=== PATIENT | female | born 1945 | race Caucasian/White ===

== ENCOUNTER 2018-02-23 13:08 | Inpatient (IN) | payer MEDICARE, OTHER ==
[~2018-02-23] VITALS: Ht 165.1 cm; Wt 59.9 kg
[2018-02-23 13:37] VITALS: BP 101/44
[2018-02-23 13:44] LABS: ABSOLUTE LYMPHOCYTES 0.6 thou/uL (0.8-5.3); ABSOLUTE MONOCYTES 0.9 thou/uL (0.0-1.2); ABSOLUTE NEUTROPHILS 4.2 thou/uL (1.6-8.1); BASOPHILS 0.1 %; EOSINOPHILS 0.3 %; HEMATOCRIT 25.7 % (37.0-47.0); HEMOGLOBIN 8.7 gm/dL (12.0-15.0); LYMPHOCYTES 10.1 %; MCH 31.5 pg (26.0-34.0); MCHC 33.7 g/dL (28.0-37.0); MCV 93.5 fL (80.0-100.0); MPV 8.6 fl. (7.2-11.1); NUCLEATED RBCS 0 /100WBC; PLATELET COUNT* 202 thou/uL (150-400); POLYS 73.5 %; RBC 2.75 mil/uL (4.20-5.00); RDW-CV 16.6 % (10.5-14.5); WBC 5.7 thou/uL (4.0-11.0)
[2018-02-23] MEDS ORDERED: NEURONTIN 300300 M1 PO (13:54)
[2018-02-23] MEDS ORDERED: ZOCOR20 MG PO (13:55)
[2018-02-23] MEDS ORDERED: LOPERAMIDE 2 MG2 M1 PO (13:55)
[2018-02-23 13:56] LABS: APTT 35.9 Seconds (25.0-31.3); PROTIME 10.6 Seconds (9.20-11.50)
[2018-02-23] MEDS ORDERED: D3 + K2 DOTS 11 EACH PO (13:56)
[2018-02-23] MEDS ORDERED: TOPROL XL100 MG PO (13:56)
[2018-02-23] MEDS ORDERED: MELATONIN5 M1 PO (13:56)
[2018-02-23] MEDS ORDERED: TESSALON PERLE100 MG PO (13:57)
[2018-02-23] MEDS ORDERED: UNICOMPLEX M TA1 TA1 PO (13:57)
[2018-02-23] MEDS ORDERED: OMEPRAZOLE40 MG PO (13:57)
[2018-02-23] MEDS ORDERED: ZOFRAN ODT4 MG DISSOLVE (13:58)
[2018-02-23 13:59] LABS: ANION GAP 6 mmol/L (7-16); BUN 36 mg/dL (7-18); CALCIUM 8.3 mg/dL (8.5-10.1); CHLORIDE 98 mmol/L (98-107); CO2 30 mmol/L (21-32); CREATININE 0.9 mg/dL (0.6-1.3); GLUCOSE 169 mg/dL (70-99); POTASSIUM 4.5 mmol/L (3.5-5.1); SODIUM 134 mmol/L (136-145)
[2018-02-23] MEDS ORDERED: DURAGESIC1 EAC4 TP (13:59)
[2018-02-23] MEDS ORDERED: LANTUS100 UNIT/M SUBQ (13:59)
[2018-02-23] MEDS ORDERED: ULTRAM 50MG TAB50 MG PO (14:03)
[2018-02-23] MEDS ORDERED: ENOXAPARIN40 MG/0.1 SUBQ (14:05)
[2018-02-23 14:06] LABS: ALBUMIN 1.9 g/dL (3.4-5.0); ALKALINE PHOSPHATASE 124 U/L (46-116); CHOLESTEROL 98 mg/dL (<200); HDL CHOLESTEROL 42 mg/dL (>40); LDL CHOLESTEROL 49 mg/dL (<100); MAGNESIUM 1.9 mg/dL (1.8-2.4); SGOT 18 U/L (15-37); SGPT 25 U/L (30-65); TC:HDL 2.3 Ratio (Not establshd); TOTAL BILIRUBIN 0.6 mg/dL (<0.1-1.0); TOTAL PROTEIN 6.5 g/dL (6.4-8.2); TRIGLYCERIDE 37 mg/dL (<150); TROPONIN-I LEVEL <0.06 ng/mL (<0.06); VLDL 7 mg/dL (<40)
[2018-02-23] MEDS ORDERED: OXYCODONE HCL 55 MG PO (14:06)
[2018-02-23 14:07] LABS: SERUM ASSESSMENT Clear
[2018-02-23] MEDS ORDERED: TYLENOL325 MG PO (14:07)
[2018-02-23] MEDS ORDERED: MARINOL5 MG PO (14:07)
[2018-02-23] MEDS ORDERED: MILK OF MA2400 MG/10 PO (14:07)
[2018-02-23 17:00] VITALS: BP 99/47
[2018-02-23 17:40] VITALS: BP 111/92
[2018-02-23 20:10] VITALS: BP 110/40
[2018-02-24] VITALS (7 sets, daily range): BP systolic 88–110; BP diastolic 38–69
[2018-02-24] MEDS ORDERED: NEURONTIN 300300 M1 PO (13:40)
[2018-02-24] MEDS ORDERED: BENZONATATE200 MG PO (13:41)
[2018-02-24] MEDS ORDERED: VITAMIN D1000 UNI1 PO (13:41)
--- NOTE | 2018-02-24 13:43 | EKG ---
[place] [address] ELECTROCARDIOGRAM REPORT Name: ANEESH CHERRY Room: [address] IN [facility]#: [id number] Admission: 02/23/18 Attend Phys: Preet Sarmiento MD Discharge: Date of : 41 Report #: [id number] THIS REPORT FOR: //name// [facility] ED Test Date: 2018-02-23 Test Time: 13:15:48 Pat Name: ANEESH CHERRY Department: Room: [facility] Gender: F Dramatic Arts Historian: Sacha RODRIGUEZ : 1945 Requested By: Naldo Lee Order Number: [id number] MD: Herberth Marin Measurements Intervals [place] Rate: 85 P: 55 MD: 116 QRS: 28 QRSD: 87 T: 36 QT: 370 QTc: 440 Interpretive Statements Sinus rhythm Borderline short MD interval ST elevation suggests acute pericarditis No previous ECG available for comparison Electronically Signed On 02-24-2018 13:43:13 CONTINUOUS DRYOUT OPERATOR HELPER by Herberth Marin [email or web address] <ELECTRONICALLY SIGNED> By: Herberth Marin MD, [facility] 02/24/18 1343 1315 1315 Herberth Marin MD, FAC /EPI
--- NOTE | 2018-02-24 13:51 | EKG ---
[place] [address] ELECTROCARDIOGRAM REPORT Name: ANEESH CHERRY Room: [address] ADM IN .R.#: [id number] Admission: 02/23/18 Attend Phys: Preet Sarmiento MD Discharge: Date of : 41 Report #: [id number] THIS REPORT FOR: //name// [facility] Test Date: 2018-02-24 Test Time: 02:25:34 Pat Name: ANEESH CHERRY Department: Room: [address] Gender: F Shallot Packer: UNKNOWN : 1945 Requested By: Preet Sarmiento Order Number: [id number] Skye MD: Herberth Marin Measurements Intervals [place] Rate: 74 P: 59 WI: 121 QRS: 28 QRSD: 92 T: 30 QT: 413 QTc: 459 Interpretive Statements Sinus rhythm Borderline ST elevation, lateral leads Electronically Signed On 02-24-2018 13:51:07 BEAUTICIAN APPRENTICE by Herberth Marin [email or web address] <ELECTRONICALLY SIGNED> By: Herberth Marin MD, [facility] 02/24/18 1351 0225 0225 Herberth Marin MD, FACC /EPI
--- NOTE | 2018-02-24 13:57 | EKG ---
[place] [address] ELECTROCARDIOGRAM REPORT Name: ANEESH CHERRY Room: [address] ADM IN M.R.#: [id number] Admission: 02/23/18 Attend Phys: Preet Sarmiento MD Discharge: Date of : 41 Report #: [id number] THIS REPORT FOR: //name// [facility] Test Date: 2018-02-24 Test Time: 08:20:29 Pat Name: ANEESH CHERRY Department: Room: [address] Gender: F Die Cutter Operator: : 1945 Requested By: Preet Sarmiento Order Number: [id number] Skye MD: Herberth Marin Measurements Intervals [place] Rate: 73 P: 45 [place]: 112 QRS: 32 QRSD: 81 T: 36 QT: 407 QTc: 449 Interpretive Statements Sinus rhythm Borderline short [place] interval ST elevation suggests acute pericarditis Electronically Signed On 02-24-2018 13:57:29 COMPOSING MACHINE OPERATOR/TENDER by Herberth Marin [email or web address] <ELECTRONICALLY SIGNED> By: Herberth Marin MD, [facility] 02/24/18 1357 0820 08 Herberth Marin MD, FACC /EPI
--- NOTE | 2018-02-24 14:04 | EKG ---
[place] [address] ELECTROCARDIOGRAM REPORT Name: ANEESH CHERRY Room: [address] ADM IN .R.#: [id number] Admission: 02/23/18 Attend Phys: Preet Sarmiento MD Discharge: Date of : 41 Report #: [id number] THIS REPORT FOR: //name// [facility] Test Date: 2018-02-24 Test Time: 10:26:15 Pat Name: ANEESH CHERRY Department: Room: [address] Gender: F Head Baker: : 1945 Requested By: Marry Ortiz Order Number: [id number] Skye MD: Herberth Marin Measurements Intervals [place] Rate: 129 P: SD: QRS: 25 QRSD: 90 T: 27 QT: 313 QTc: 459 Interpretive Statements Atrial fibrillation Electronically Signed On 02-24-2018 14:03:58 REHABILITATION NURSE by Herberth Marin [email or web address] <ELECTRONICALLY SIGNED> By: Herberth Marin MD, [facility] 02/24/18 1403 1026 1026 Herberth Marin MD, FACC /EPI
[2018-02-25] VITALS: BP 109/59; BP 92/39
[2018-02-25 04:00] VITALS: BP 95/43
[2018-02-25 05:29] LABS: HEMATOCRIT 21.3 % (37.0-47.0); HEMOGLOBIN 7.3 gm/dL (12.0-15.0); MCH 32.2 pg (26.0-34.0); MCHC 34.4 g/dL (28.0-37.0); MCV 93.5 fL (80.0-100.0); RBC 2.27 mil/uL (4.20-5.00); RDW-CV 16.2 % (10.5-14.5)
[2018-02-25 06:24] LABS: ALBUMIN 1.4 g/dL (3.4-5.0); CREATININE 0.8 mg/dL (0.6-1.3); MAGNESIUM 2.1 mg/dL (1.8-2.4); POTASSIUM 4.5 mmol/L (3.5-5.1); TOTAL BILIRUBIN 0.4 mg/dL (<0.1-1.0); TOTAL PROTEIN 5.3 g/dL (6.4-8.2)
[2018-02-25 08:00] VITALS: BP 83/50
--- NOTE | 2018-02-25 13:29 | 2DMMODE ---
[place] [address] 2 D/M-MODE ECHOCARDIOGRAM Name: ANEESH CHERRY Room: [address] IN [facility]#: [id number] Admission: 02/23/18 Attend Phys: Preet Sarmiento, Discharge: Date of : 41 Date of Service: 02/25/18 1329 Report #: [id number] THIS REPORT FOR: //name// APPROVED REPORT Study performed: 02/25/2018 10:34:20 EXAM: Comprehensive 2D, Doppler, and color-flow Echocardiogram Patient Location: In-Patient Room #: [facility] Status: routine BSA: 2.04 HR: 114 bpm BP: 83/50 mmHg Rhythm: Atrial Fibrillation Other Information Study Quality: Good Indications Atrial Fibrillation Chest Pain 2D Dimensions IVSd: 10.62 (7-11mm) LVOT Diam: 19.26 (18-24mm) LVDd: 42.04 mm PWd: 9.50 (7-11mm) Ascending Ao: 30.84 (22-36mm) LVDs: 23.68 (25-40mm) Aortic Root: 26.69 mm Volumes Left Atrial Volume (Systole) LA ESV Index: 28.80 mL/m2 Aortic Valve AoV Peak Yinka.: 1.58 m/s AO Peak Gr.: 9.98 mmHg LVOT Max P.98 mmHg AO Mean Gr.: 5.36 mmHg LVOT Mean P.14 mmHg LVOT Max V: 1.00 m/s AO V2 VTI: 25.00 cm LVOT Mean V: 0.69 m/s JOSE RAUL (VTI): 2.19 cm2 LVOT V1 VTI: 18.80 cm Mitral Valve MV Decel. Time: 140.89 ms MV E Max Yinka.: 0.91 m/[place] [address] 2 D/M-MODE ECHOCARDIOGRAM Name: ANEESH CHERRY Room: [address] IN [facility]#: [id number] Admission: 02/23/18 Attend Phys: Preet Sarmiento, Discharge: Date of : 41 Date of Service: 02/25/18 1329 Report #: [id number] MV PHT: 40.86 ms MVA (PHT): 5.38 cm2 TDI E/Lateral E': 6.07 E/Medial E': 8.27 Medial E' Yinka.: 0.11 m/s Lateral E' Yinka.: 0.15 m/s Pulmonary Valve PV Peak Yinka.: 0.95 m/s PV Peak Gr.: 3.59 mmHg Tricuspid Valve RAP Estimate: 5.00 mmHg TR Peak Gr.: 22.33 mmHg RVSP: 27.00 mmHg PA Pressure: 27.00 mmHg Left Ventricle The left ventricle is normal size. There is normal LV segmental wall motion. There is normal left ventricular wall thickness. Left ventricular systolic function is normal. LVEF is 65-70%. This study is not technically sufficient to allow evaluation of the LV diastolic function due to atrial fibrillation. Right Ventricle The right ventricle is normal size. The right ventricular systolic function is normal. Atria Left atrium is mildly dilated. Right atrium is mildly dilated. Aortic Valve Mild aortic valve sclerosis. No aortic regurgitation is present. There is no aortic valvular stenosis. Mitral Valve The mitral valve is normal in structure. Trace mitral regurgitation. No evidence of mitral valve stenosis. Tricuspid Valve The tricuspid valve is normal in structure. Mild tricuspid regurgitation. No pulmonary hypertension. Pulmonic Valve The pulmonary valve is normal in structure. There is no pulmonic [place] [address] 2 D/M-MODE ECHOCARDIOGRAM Name: ANEESH CHERRY Room: [address] IN [facility]#: [id number] Admission: 02/23/18 Attend Phys: Preet Sarmiento, Discharge: Date of : 41 Date of Service: 02/25/18 1329 Report #: [id number] Great Vessels The aortic root is normal in size. IVC is normal in size and collapses >50% with inspiration. Pericardium There is no pericardial effusion. <Conclusion> The left ventricle is normal size. There is normal left ventricular wall thickness. Left ventricular systolic function is normal. LVEF is 65-70%. Left atrium is mildly dilated. Right atrium is mildly dilated. Trace mitral regurgitation. Mild tricuspid regurgitation. No pulmonary hypertension. IVC is normal in size and collapses >50% with inspiration. <ELECTRONICALLY SIGNED> By: Remi De Dios MD, FACC 02/25/18 1329 28 28 Remi De Dios MD, FACC /INF
--- NOTE | 2018-02-25 13:45 | EKG ---
[place] [address] ELECTROCARDIOGRAM REPORT Name: ANEESH CHERRY Room: [address] ADM IN M.R.#: [id number] Admission: 02/23/18 Attend Phys: Preet Sarmiento MD Discharge: Date of : 41 Report #: [id number] THIS REPORT FOR: //name// [facility] Test Date: 2018-02-25 Test Time: 08:16:28 Pat Name: ANEESH CHERRY Department: Room: [address] Gender: F Mold Designer: : 1945 Requested By: Herberth Marin Order Number: [id number] Skye MD: Remi De Dios Measurements Intervals [place] Rate: 93 P: AR: QRS: 26 QRSD: 85 T: 17 QT: 356 QTc: 443 Interpretive Statements Atrial fibrillation Compared to ECG 02/24/2018 10:26:15 No significant changes Electronically Signed On 02-25-2018 13:45:49 HIV NURSE by Remi De Dios [email or web address] <ELECTRONICALLY SIGNED> By: Remi De Dios MD, [facility] 02/25/18 1345 08 5 Remi De Dios MD, FACC /EPI
--- NOTE | 2018-02-25 13:54 | CON ---
[facility] [address] [place] [address] CONSULTATION Name: ANEESH CHERRY Room: [address] IN M.R.#: [id number] Admission: 02/23/18 Attend Phys: Preet Sarmiento MD Discharge: Date of : 41 Report #: [id number] THIS REPORT FOR: //name// CC: Morteza Sarmiento DATE OF SERVICE: 02/24/2018 TYPE OF REPORT: Cardiology consultation. PRIMARY CARE PHYSICIAN: Morteza Quinteros M.D. HISTORY OF PRESENT ILLNESS: The patient is a 72-year-old white female who I was asked to see in the hospital today after she had an episode of chest pain. The patient has an extensive past medical history. Unfortunately, none of her old records are here. The patient was diagnosed with breast cancer approximately a year ago. This was diagnosed by a biopsy. Apparently had spread to local lymph nodes as well as the eye, bone and lungs. She was treated with chemotherapy and radiation therapy. Apparently, she fell a couple of months ago and was found to have evidence of rib fracture. Recently, she had been having hip pain. Ten days ago, she underwent hip surgery at [facility]. She was hospitalized for 3 days. A week ago, she was transferred to rehabilitation. Yesterday, she was at rehab when she complained of some chest tightness. She was brought here to [place] by ambulance. She notes the tightness lasted all night long. There is no radiation of the pain. She denied associated shortness of breath, diaphoresis or nausea. She was admitted last night here to [place]. Today, she went into atrial fibrillation with rapid ventricular response rate. I was asked to see her for further evaluation and treatment. She denied any recent bleeding or cough. She denied any trauma to her chest. She notes some exertional dyspnea but denies any palpitations or syncope. She denied any leg pain. PAST MEDICAL HISTORY: Otherwise, she has had previous hemicolectomy for diverticular disease. She has a history of hypertension and diabetes. MEDICATIONS: On admission included Neurontin, Zocor, Imodium, metoprolol, omeprazole and fentanyl patch. She is on insulin, tramadol and dronabinol. ALLERGIES: She has intolerance to MORPHINE and SULFA. FAMILY HISTORY: Her mother had heart disease. SOCIAL HISTORY: She is . She and her live in [place], [place]. She ambulates with a cane. She also has a stair lift. Quit smoking years ago. [place] [address] CONSULTATION Name: ANEESH CHERRY Room: [address] IN M.R.#: [id number] Admission: 02/23/18 Attend Phys: Preet Sarmiento MD Discharge: Date of : 41 Report #: [id number] REVIEW OF SYSTEMS: No history of stroke. No history of asthma, peptic ulcer disease, kidney disease, psychiatric illness or chronic skin condition. PHYSICAL EXAMINATION: VITAL SIGNS: Revealed a blood pressure 100/70, pulse 70. She is afebrile. HEENT: She is anicteric. Conjunctivae pink. Mucous membranes moist. NECK: Veins do not appear distended. Neck is supple. CHEST: Clear to auscultation. CARDIOVASCULAR: Irregular tachycardia. No significant murmur. ABDOMEN: Soft. EXTREMITIES: Had no pitting edema. Dorsalis pedis pulse cannot be palpated. SKIN: Cool and dry. NEUROLOGICAL: Nonfocal. RADIOLOGICAL DATA: ECG on admission showed sinus rhythm with early repolarization. Currently, she appears to be in atrial fibrillation with rapid ventricular response rate. Her x-rays, the patient had portable chest x-ray on admission that showed normal heart size and clear lung pandya. There is a CT scan of the chest that showed no evidence of pulmonary embolus, evidence of metastatic disease with a mass in the lateral aspect of the left breast. LABORATORY DATA: Her lab work, sodium 139, BUN 27 and creatinine 0.8. Albumin is 1.5. Troponin is 0.06. Cholesterol 98 and LDL 49. White blood cell count 3.7 and hemoglobin 7.5. IMPRESSION AND RECOMMENDATIONS: 1. Atrial fibrillation. The patient is on a beta uvaldo. Recommend digoxin to slow the rate. The patient does not appear to be very good candidate for anticoagulation because of anemia. At this time, I recommend switching from metoprolol to sotalol. Recommend echocardiogram. 2. History of metastatic breast cancer. 3. Recent hip surgery. 4. Anemia. No history of bleeding. 5. Hypertension. The patient has been on beta uvaldo. 6. Diabetes. 7. Recent hip surgery. <ELECTRONICALLY SIGNED> By: Herberth Marin MD, FACC 02/25/18 1354 1042 [id number] enrique Marin MD, FAC /nt
[2018-02-25 16:24] VITALS: BP 92/27
[2018-02-25 16:58] VITALS: BP 119/52
[2018-02-25 20:00] VITALS: BP 124/79
[2018-02-26] VITALS: BP 108/44
[2018-02-26 04:00] VITALS: BP 104/42
[2018-02-26 05:00] LABS: HEMATOCRIT 21.2 % (37.0-47.0); HEMOGLOBIN 7.1 gm/dL (12.0-15.0); MCH 31.4 pg (26.0-34.0); MCHC 33.4 g/dL (28.0-37.0); MPV 8.9 fl. (7.2-11.1); RBC 2.25 mil/uL (4.20-5.00); RDW-CV 16.2 % (10.5-14.5); WBC 4.4 thou/uL (4.0-11.0)
[2018-02-26 05:24] LABS: CREATININE 0.8 mg/dL (0.6-1.3); MAGNESIUM 2.1 mg/dL (1.8-2.4); POTASSIUM 4.5 mmol/L (3.5-5.1)
[2018-02-26 07:30] VITALS: BP 110/42
[2018-02-26] MEDS ORDERED: PROPAFENONE 15150 MG PO (12:03)
[2018-02-26 12:19] VITALS: BP 110/42
--- NOTE | 2018-02-27 11:17 | EKG ---
[place] [address] ELECTROCARDIOGRAM REPORT Name: ANEESH CHERRY Room: [address] DIS IN .R.#: [id number] Admission: 02/23/18 Attend Phys: Preet Sarmiento MD Discharge: 02/26/18 Date of : 41 Report #: [id number] THIS REPORT FOR: //name// [facility] Test Date: 2018-02-25 Test Time: 17:08:00 Pat Name: ANEESH CHERRY Department: Room: [address] Gender: F Handyman: [id number] : 1945 Requested By: Herberth Marin Order Number: [id number] Skye MD: Herberth Marin Measurements Intervals [place] Rate: 77 P: 78 NM: 96 QRS: 90 QRSD: 90 T: 4 QT: 375 QTc: 425 Interpretive Statements Sinus rhythm Short NM interval Borderline right axis deviation Abnormal R-wave progression, early transition Compared to ECG 02/25/2018 08:16:28 Atrial fibrillation no longer present Electronically Signed On 02-27-2018 11:17:19 HAZARDOUS SUBSTANCES ENGINEER by Herberth Marin [email or web address] <ELECTRONICALLY SIGNED> By: Herberth Marin MD, FACC 02/27/18 1117 1708 1708 Herberth Marin MD, [facility] /EPI
== END 2018-02-26 14:38 | DRG 597 ==
LOC: M.ERS 13:08 → EDBD 13:08 → M.2W 14:47 → M.TBA-ER 14:47 → M.2W 17:15
PROVIDERS: Family Medicine; Internal Medicine
DX: C50.919 Malignant neoplasm of unspecified site of unspecified female breast (principal); E43 Unspecified severe protein-calorie malnutrition; C78.00 Secondary malignant neoplasm of unspecified lung; C78.89 Secondary malignant neoplasm of other digestive organs; C79.51 Secondary malignant neoplasm of bone; C22.0 Liver cell carcinoma; R07.89 Other chest pain; I48.91 Unspecified atrial fibrillation; D63.0 Anemia in neoplastic disease; E11.40 Type 2 diabetes mellitus with diabetic neuropathy, unspecified; E78.5 Hyperlipidemia, unspecified; K21.9 Gastro-esophageal reflux disease without esophagitis; I49.5 Sick sinus syndrome; I10 Essential (primary) hypertension; Z79.4 Long term (current) use of insulin; Z79.899 Other long term (current) drug therapy; Z88.5 Allergy status to narcotic agent; Z88.2 Allergy status to sulfonamides; Z88.6 Allergy status to analgesic agent; Z82.49 Family history of ischemic heart disease and other diseases of the circulatory system

== ENCOUNTER → 2018-04-18 | Outpatient (CLI) | payer MEDICARE, OTHER ==
[~2018-04-18] MED LIST: BENZONATATE200 MG PO; D3 + K2 DOTS 11 EACH PO; DURAGESIC1 EAC4 TP; ENOXAPARIN40 MG/0.1 SUBQ; LANTUS100 UNIT/M SUBQ; LOPERAMIDE 2 MG2 M1 PO; MARINOL5 MG PO; MELATONIN5 M1 PO; MILK OF MA2400 MG/10 PO; NEURONTIN 300300 M1 PO; OMEPRAZOLE40 MG PO; OXYCODONE HCL 55 MG PO; PROPAFENONE 15150 MG PO; TESSALON PERLE100 MG PO; TOPROL XL100 MG PO; TYLENOL325 MG PO; ULTRAM 50MG TAB50 MG PO; UNICOMPLEX M TA1 TA1 PO; VITAMIN D1000 UNI1 PO; ZOCOR20 MG PO; ZOFRAN ODT4 MG DISSOLVE
--- NOTE | 2018-04-18 16:26 | CARDNUC ---
[place] [address] CARDIAC NUCLEAR IMAGING REPORT Name: ANEESH CHERRY Room: [employer]#: [id number] Admission: 04/18/18 Attend Phys: Remi De Dios, Discharge: Date of : 41 Date of Service: 04/18/18 1625 Report #: [id number] THIS REPORT FOR: //name// APPROVED REPORT Study performed: 04/18/2018 13:15:00 Indication: Atrial Fibrillation Patient Location: Out-Patient Stress Tech: [facility] Stress Nurse: Roz Valadez RN Ht: 5 ft 4 in Wt: 134 lbs BSA: 1.65 m2 BMI: 22.99 Medical History Medical History: hypertension, diabetes, breast cancer, sick sinus syndron Medications: lasix, rhtymol, zocor Allergies: ibuprofen, morphine, sulfa Cardiac Risk Factors: age hypertension diabetes Exercise History: Sedentary Resting Data Rest SPECT myocardial perfusion imaging was performed in supine position 30 minutes following the intravenous injection of 10.1 mCi of Tc-99m Sestamibi. Time of rest injection: 13:30 The images were gated to evaluate regional wall motion and calculate left ventricular ejection fraction. Administration Route: IV Administration Site: Right Arm Pharmacologic Stress Pharmacologic stress test was performed by injecting Regadenoson 0.4 mg IV push over 10-15 seconds immediately followed by the intravenous injection of 32.2 mCi of Tc-99m Sestamibi. Time of stress injection: 15:00 Administration Route: IV Administration Site: Right Arm Heart Rate at time of stress injection: 92 bpm. The images were gated to evaluate regional wall motion and calculate left ventricular ejection fraction[place] [address] CARDIAC NUCLEAR IMAGING REPORT Name: ANEESH CHERRY Room: [employer]#: [id number] Admission: 04/18/18 Attend Phys: Remi De Dios, Discharge: Date of : 41 Date of Service: 04/18/18 1625 Report #: [id number] Stress Test: Pharmacologic stress testing performed using 0.4 mg of regadenoson per 5 mL given IV over 10 seconds. Reason for pharmacologic stress test: physical limitation. HR Max Heart Rate (APMHR): 146 bpm Resting HR: 87 bpm Target HR (85% APMHR): 124 bpm Max HR Achieved: 92 bpm % of APMHR: 63 Recovery HR: 92 bpm BP Resting BP: 122/54 mmHg Max BP: 206/69 mmHg Recovery BP: 113/62 mmHg BP response to stress: Abnormal hypotensive response to stress. ECG Resting ECG: Sinus Rhythm Stress ECG: Sinus Rhythm ST Change: None Arrhythmia: None Recovery ECG: Sinus Rhythm Recovery ST Change: None Recovery Arrhythmia: None Clinical Reason for Termination: Gen. prescription pad, Exercise duration: 0 min sec Exercise capacity: 1 METs Nurse Comments pt to weak to walk on treadmill Study Quality Study: Good Artifact: No artifact Study Data At rest, the left ventricular ejection fraction was 68%.. Post stress, the left ventricular ejection was 68%.. TID = 1.03. Perfusion Normal left [place] [address] CARDIAC NUCLEAR IMAGING REPORT Name: ANEESH CHERRY Room: [employer] [facility]#: [id number] Admission: 04/18/18 Attend Phys: Remi De Dios, Discharge: Date of : 41 Date of Service: 04/18/18 1625 Report #: [id number] Normal left ventricular wall motion. Nuclear Conclusion ECG Findings: negative for ischemia Clinical Findings: negative for ischemia Nuclear Findings: negative for ischemia Exercise Capacity: not assessed Left Ventricular Function: normal Risk Study: low Myocardial perfusion images show no defect to suggest infarct or ischemia. Left ventricular systolic function appears normal on gated studies. This is a low risk study. <ELECTRONICALLY SIGNED> By: Remi De Dios MD, [facility] 04/18/18 1625 1625 1625 Remi De Dios MD, FACC /INF
== END ==
LOC: M.NUC 13:00
DX: I48.0 Paroxysmal atrial fibrillation (principal); R07.89 Other chest pain; I10 Essential (primary) hypertension; E11.9 Type 2 diabetes mellitus without complications; Z79.899 Other long term (current) drug therapy; Z88.1 Allergy status to other antibiotic agents; Z88.5 Allergy status to narcotic agent; Z88.2 Allergy status to sulfonamides